=== PATIENT | male | born 1940 | race Caucasian/White ===

== ENCOUNTER 2017-02-15 07:43 | Emergency (ER) | payer MEDICARE ==
[~2017-02-15] VITALS: Ht 195.6 cm; Wt 113.6 kg
[2017-02-15] MEDS ORDERED: MORPHINE SULFATE 4 MG/ML, 1ML ONE (08:06)
[2017-02-15] MEDS ORDERED: ONDANSETRON 2MG/ML, 2ML ONE (08:06)
[2017-02-15] MEDS ORDERED: MORPHINE SULFATE 4 MG/ML, 1ML IVPush PRN (08:30)
[2017-02-15] MEDS ORDERED: ONDANSETRON 2MG/ML, 2ML IVPush ONE (08:30)
[2017-02-15] MEDS ORDERED: SODIUM CHLORIDE FLUSH 10ML SYR IVF ONE (08:30)
[2017-02-15] MEDS ORDERED: SODIUM CHLORIDE 0.9% 1,000ML IV ONE (08:30)
[2017-02-15 08:37] LABS: HEMATOCRIT 44.9 % (39.2-51.8); WHITE BLOOD COUNT 9.4 x10^3/uL (3.4-10)
[2017-02-15 08:45] LABS: BLOOD UREA NITROGEN 20 mg/dL (7-18)
[2017-02-15 08:49] LABS: ASPARTATE AMINO TRANSFERASE 18 U/L (15-37)
[2017-02-15] MEDS ORDERED: KETOROLAC 30 MG/1 ML ONE (09:38)
[2017-02-15] MEDS ORDERED: KETOROLAC 30 MG/1 ML IVPush ONE (10:00)
[2017-02-15 10:10] VITALS: BP 159/87
== END 2017-02-15 10:14 | disposition home or self-care (01) ==
LOC: ED 09:03
DX: N20.2 Calculus of kidney with calculus of ureter (principal); Z87.442 Personal history of urinary calculi; G89.29 Other chronic pain; E78.5 Hyperlipidemia, unspecified; I48.91 Unspecified atrial fibrillation; F32.9 Major depressive disorder, single episode, unspecified; Z79.01 Long term (current) use of anticoagulants; K44.9 Diaphragmatic hernia without obstruction or gangrene
CPT/HCPCS: 36415; 74176; 80053; 81001; 85025; 93005; 96361; 96374; 96375; 99285; J1885; J2405; J7030